=== PATIENT | female | born 1975 | race African-American/Black ===

== ENCOUNTER 2025-02-12 15:50 | Inpatient (IN) | payer MEDICAID ==
[~2025-02-12] VITALS: Ht 157.5 cm; Wt 98.7 kg
[~2025-02-12 15:50] MED LIST: ALBU18HF2 IH; AMLO5TAB88 MT; ATROV INH; BUDE10.27 HHN; EPIN0.3P3 IM; MONT-46 MT; NITR-87 MT; P20 PO; PANT40TA51 MT
[2025-02-12 16:14] VITALS: PULSE 136; RESP 27; O2SAT 97
[2025-02-12] MEDS: IPRATROPIUM BROMIDE (0.02%) 0.5MG/2.5ML NEB HHN SCH (16:14)
[2025-02-12] MEDS: ALBUTEROL (0.083%) 2.5MG/3ML NEB HHN SCH (16:14)
[2025-02-12] MEDS: METHYLPREDNISOLONE SOD SUCC 125MG/2ML (ACT-O-VIAL) IV ONE (16:17)
[2025-02-12 16:42] LABS: BASOPHILS % 1.0 % (0.0-2.0); EOSINOPHILS % 0.7 % (0.0-5.0); HEMATOCRIT. 42.5 % (36.0-48.0); HEMOGLOBIN. 14.0 g/dL (12.0-16.0); LYMPHOCYTES % 38.4 % (20.0-50.0); MEAN PLATELET VOLUME 9.7 fl (7.4-10.4); MONOCYTES % 5.4 % (2.0-8.0); NEUTROPHILS % 54.5 % (40.0-76.0); PLATELET 314 x1000/uL (130-400); RED BLOOD CELL COUNT 4.86 mill/uL (4.2-5.4); RED CELL DISTRIBUTION WIDTH 13.2 % (11.6-14.6)
[2025-02-12 16:57] LABS: CREATININE 0.9 mg/dL (0.6-1.0); UREA NITROGEN BLOOD 5 mg/dL (9-23)
[2025-02-12 16:58] LABS: ASPARTATE AMINOTRANSFERASE 21 IU/L (<34); TROPONIN I HIGH SENSITIVITY < 4 ng/L (3.0-34)
[2025-02-12 16:59] LABS: BILIRUBIN DIRECT 0.1 mg/dL (<=3.0); BILIRUBIN TOTAL 0.4 mg/dL (0.1-1.0); PROTEIN TOTAL 7.2 g/dL (6.0-8.3)
[2025-02-12 17:05] LABS: HCG SCREEN NEGATIVE
[2025-02-12 21:27] LABS: TROPONIN I HIGH SENSITIVITY < 4 ng/L (3.0-34)
[2025-02-13] VITALS (10 sets, daily range): BP systolic 114–149; BP diastolic 75–96; PULSE 84–137; RESP 18–28; TEMP 36.14–36.6; O2SAT 92–99
[2025-02-13] MEDS ORDERED: ACETAMINOPHEN 650MG/20.3ML UDC PO PRN (05:30)
[2025-02-13] MEDS: METHYLPREDNISOLONE SOD SUCC 40MG/ML (ACT-O-VIAL) IV SCH (06:42)
[2025-02-13] MEDS: HYDROCODONE/ACETAMINOPHEN 5/325MG TABLET PO PRN (06:43)
[2025-02-13] MEDS ORDERED: METHYLPREDNISOLONE SOD SUCC 40MG/ML (ACT-O-VIAL) IV SCH (08:30)
[2025-02-13] MEDS: BUDESONIDE 0.5MG/2ML NEB HHN SCH (08:49)
[2025-02-13] MEDS: IPRATROPIUM/ALBUTEROL 0.5-3(2.5)MG/3ML NEB HHN SCH (08:50)
[2025-02-13] MEDS ORDERED: NALOXONE HCL 0.4MG/ML VIAL IV PRN (09:00)
[2025-02-13] MEDS: METOPROLOL TARTRATE 50MG TABLET PO SCH (09:11)
[2025-02-13] MEDS: IPRATROPIUM BROMIDE (0.02%) 0.5MG/2.5ML NEB HHN SCH (12:32)
[2025-02-13 13:15] LABS: BASOPHILS % 0.2 % (0.0-2.0); EOSINOPHILS % 0.1 % (0.0-5.0); HEMATOCRIT. 42.0 % (36.0-48.0); HEMOGLOBIN. 14.1 g/dL (12.0-16.0); LYMPHOCYTES % 7.2 % (20.0-50.0); MEAN PLATELET VOLUME 9.7 fl (7.4-10.4); MONOCYTES % 2.9 % (2.0-8.0); NEUTROPHILS % 89.6 % (40.0-76.0); PLATELET 336 x1000/uL (130-400); RED BLOOD CELL COUNT 4.82 mill/uL (4.2-5.4); RED CELL DISTRIBUTION WIDTH 13.5 % (11.6-14.6)
[2025-02-13] MEDS ORDERED: KETOROLAC 30MG/ML VIAL IV PRN (13:15)
[2025-02-13 13:27] LABS: CREATININE 0.8 mg/dL (0.6-1.0)
[2025-02-13 13:28] LABS: UREA NITROGEN BLOOD 8 mg/dL (9-23)
[2025-02-13] MEDS: DILTIAZEM HCL 60MG TABLET PO SCH (17:25)
[2025-02-13] MEDS: MONTELUKAST SODIUM 10MG TABLET PO SCH (17:25)
[2025-02-14] VITALS (12 sets, daily range): BP systolic 99–138; BP diastolic 64–87; PULSE 61–103; RESP 16–20; TEMP 36.2–36.7; O2SAT 95–100
[2025-02-14] MEDS: ZOLPIDEM TARTRATE 5MG TABLET PO PRN (00:13)
[2025-02-15] VITALS (8 sets, daily range): BP systolic 102–159; BP diastolic 70–92; PULSE 79–107; RESP 18–20; TEMP 36.3–36.6; O2SAT 96–100
[2025-02-15] MEDS ORDERED: P20 MT (12:00)
[2025-02-15] MEDS ORDERED: DILT240C91 MT (12:00)
[2025-02-15] MEDS ORDERED: EPIN0.3P3 IM (12:31)
[2025-02-15] MEDS ORDERED: ATROV IH (14:23)
== END 2025-02-15 16:30 | disposition home or self-care (01) | DRG 133 ==
LOC: ER 15:50 → EDBEDREQ 20:20 → EDBEDREQTM 20:20 → ENRESERV 02-13 00:13 → 7WST 02-13 01:00
PROVIDERS: ADMIT Internal Medicine; ATTEND Internal Medicine
DX: J96.00 Acute respiratory failure, unspecified whether with hypoxia or hypercapnia (principal); J45.901 Unspecified asthma with (acute) exacerbation; I47.10 Supraventricular tachycardia, unspecified; E66.9 Obesity, unspecified; K21.9 Gastro-esophageal reflux disease without esophagitis; D72.829 Elevated white blood cell count, unspecified; Z79.899 Other long term (current) drug therapy; Z68.39 Body mass index [BMI] 39.0-39.9, adult; Z71.3 Dietary counseling and surveillance
CPT/HCPCS: 36415; 71045; 80048; 80076; 83735; 83880; 84484; 84703; 85025; 93005; 94070; 94640; 94664; 96374; 99291; A4606; J2919; J7626